=== PATIENT | male | born 1995 | race Caucasian/White ===

== ENCOUNTER 2020-04-06 20:55 | Emergency (ER) | payer SELFPAY ==
[~2020-04-06] VITALS: Ht 190.5 cm; Wt 82.0 kg
[2020-04-06] MEDS ORDERED: LIDOCAINE/EPI 2% 1:100,00 (XYLOCAINE) 20 ML VIAL ONE (21:10)
[2020-04-06] MEDS ORDERED: TETANUS,DIPTH,PERTUSS P/F (BOOSTRIX) 0.5 ML VIAL IM ONE ×2 (21:10→21:15)
[2020-04-06] MEDS ORDERED: LIDOCAINE/EPI 1%-1:200,000 (XYLOCAINE) 30 ML VIAL INJ ONE (21:15)
[2020-04-06] MEDS ORDERED: CEPH-507 PO (21:28)
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
[2020-04-06 22:01] VITALS: BP 135/88
== END 2020-04-06 22:01 | disposition home or self-care (01) ==
LOC: EDUNIT# 20:55 → ER 20:57
DX: S01.511A Laceration without foreign body of lip, initial encounter (principal); Z88.0 Allergy status to penicillin; Z23 Encounter for immunization; V89.2XXA Person injured in unspecified motor-vehicle accident, traffic, initial encounter
CPT/HCPCS: 12051; 70450; 72125; 90715

== ENCOUNTER → 2021-12-27 | Outpatient (CLI) | payer SELFPAY ==
[~2021-12-27] MED LIST: CEPH-507 PO
--- NOTE | 2021-12-27 09:50 | Diagnostic Imaging Report ---
Indication: Employment physical. Lumbar statures normal. The alignment anatomic. The disc space is preserved. IMPRESSION: Normal radiographic appearance of the anatomically aligned lumbar spine. Dictated by: Dictated on workstation # [id number]
== END ==
LOC: RAD 08:58
PROVIDERS: ATTEND Chiropractor
DX: M54.16 Radiculopathy, lumbar region (principal)
CPT/HCPCS: 72100